=== PATIENT | female | born 1990 | race Caucasian/White ===

== ENCOUNTER 2017-10-10 15:27 | Outpatient (CLI) | payer OTHER ==
[~2017-10-10] VITALS: Ht 154.9 cm; Wt 79.5 kg
[~2017-10-10 15:27] MED LIST: MOTRIN 600600 MG/TAB PO; PRENATAL VITAMI1 TAB PO; PRENATAL1 TA7 PO
[2017-10-10 15:41] VITALS: BP 115/68; PULSE 102; TEMP 97.8
[2017-10-10 16:30] VITALS: BP 115/68; PULSE 102; TEMP 97.8
== END 2017-10-10 17:00 | disposition home or self-care (01) ==
LOC: LDRO 15:27 → LDR 15:30 → LDRO 17:00
DX: O62.9 Abnormality of forces of labor, unspecified (principal); Z3A.37 37 weeks gestation of pregnancy
CPT/HCPCS: OP

== ENCOUNTER 2017-10-25 07:58 | Inpatient (IN) | payer OTHER ==
[~2017-10-25] VITALS: Ht 152.4 cm; Wt 78.2 kg
[2017-10-25] VITALS (28 sets, daily range): BP systolic 102–132; BP diastolic 50–78; PULSE 73–110; TEMP 97.4–98.2
[2017-10-25 09:18] LABS: BASO % 0.2 % (0.0-2.0); EOS % 0.3 % (0-4.0); GRAN # 8.9 (1.4-6.5); LYMPH # 2.2 (1.2-3.4); LYMPH % 18.2 % (20.0-51.0); MEAN CELL VOLUME 85 fl (80.0-100.0); MEAN CORPUSCULAR HGB CONC 32 g/dl (33.0-37.0); MEAN PLATELET VOLUME 9.8 fl (7.4-10.4); MONO # 0.9 (0.1-0.6); MONO % 7.2 % (1.7-9.3); PLATELET COUNT 229 K/mm3 (130-400); RED BLOOD COUNT 4.05 M/mm3 (4.10-5.30); REDCELL DISTRIBUTION WIDTH-CV 13.9 % (11.5-14.5)
[2017-10-25 09:24] LABS: HEMATOCRIT 34.5 % (37.0-47.0); HEMOGLOBIN 10.9 g/dl (12.5-16.0); MEAN CORPUSCULAR HEMOGLOBIN 27 pg (27.0-31.0)
[2017-10-26 03:00] VITALS: BP 113/46; PULSE 71; TEMP 97.8
[2017-10-26 07:30] VITALS: BP 101/59; PULSE 78; TEMP 97.8
[2017-10-26 10:08] LABS: BASO # 0.1 (0.0-0.2); BASO % 0.3 % (0.0-2.0); EOS % 0.2 % (0-4.0); GRAN # 12.1 (1.4-6.5); GRAN % 79.8 % (42.2-75.2); LYMPH % 13.1 % (20.0-51.0); MEAN CELL VOLUME 86 fl (80.0-100.0); MEAN CORPUSCULAR HGB CONC 31 g/dl (33.0-37.0); MEAN PLATELET VOLUME 9.6 fl (7.4-10.4); MONO # 0.9 (0.1-0.6); MONO % 5.9 % (1.7-9.3); PLATELET COUNT 222 K/mm3 (130-400); RED BLOOD COUNT 3.66 M/mm3 (4.10-5.30)
[2017-10-26 10:09] LABS: HEMATOCRIT 31.3 % (37.0-47.0); HEMOGLOBIN 9.8 g/dl (12.5-16.0); MEAN CORPUSCULAR HEMOGLOBIN 27 pg (27.0-31.0)
[2017-10-26 13:30] VITALS: BP 103/47; PULSE 96; TEMP 96.7
[2017-10-26 16:29] VITALS: BP 100/52; PULSE 82; TEMP 98.1
[2017-10-26 20:05] VITALS: BP 108/64; PULSE 85; TEMP 97.7
[2017-10-27 07:15] VITALS: BP 112/67; PULSE 78; TEMP 97.9
[2017-10-27] MEDS ORDERED: IBU600 MG PO (07:51)
== END 2017-10-27 10:40 | disposition home or self-care (01) | DRG 774 ==
LOC: LDRO 07:58 → LDR 08:05 → OB 08:05
PROVIDERS: Obstetrics & Gynecology
PROC: 10E0XZZ Delivery of Products of Conception, External Approach (ICD-10-PCS; principal; 2017-10-25)
DX: O99.824 Streptococcus B carrier state complicating childbirth (principal); O72.1 Other immediate postpartum hemorrhage; Z3A.39 39 weeks gestation of pregnancy; Z37.0 Single live birth
CPT/HCPCS: J2590; J2795; J7120

== ENCOUNTER 2019-12-30 11:25 | Inpatient (IN) | payer BC ==
[~2019-12-30] VITALS: Ht 152.4 cm; Wt 83.3 kg
[2019-12-30] VITALS (27 sets, daily range): BP systolic 91–126; BP diastolic 52–88; PULSE 63–107; TEMP 97.9–98.2
[~2019-12-30 11:25] MED LIST changes: +IBU600 MG PO
[2019-12-30 13:39] LABS: BASO % 0.3 % (0.0-2.0); EOS # 0.1 (0.0-0.7); EOS % 0.5 % (0-4.0); GRAN # 8.8 (1.4-6.5); GRAN % 73.5 % (42.2-75.2); HEMOGLOBIN 11.3 g/dl (12.5-16.0); LYMPH # 2.1 (1.2-3.4); LYMPH % 17.9 % (20.0-51.0); MEAN CELL VOLUME 84 fl (80.0-100.0); MEAN CORPUSCULAR HEMOGLOBIN 27 pg (27.0-31.0); MEAN CORPUSCULAR HGB CONC 32 g/dl (33.0-37.0); MEAN PLATELET VOLUME 10.9 fl (7.4-10.4); MONO # 0.8 (0.1-0.6); PLATELET COUNT 239 K/mm3 (130-400); RED BLOOD COUNT 4.23 M/mm3 (4.10-5.30); REDCELL DISTRIBUTION WIDTH-CV 13.9 % (11.5-14.5)
[2019-12-30] MEDS ORDERED: TUMS EXTRA STR750 MG PO (13:40)
[2019-12-30] MEDS ORDERED: TYLENOL 500MG500 MG PO (13:41)
[2019-12-30 13:44] LABS: HEMATOCRIT 35.7 % (37.0-47.0)
--- NOTE | 2019-12-30 13:47 | NUR ---
PT HERE FOR INDUCTION OF LABOR. FHT'S FOUND IN THE 130'S WITH MODERATE VARIABILITY AND ACCELS. CONSENTS SIGNED. PLAN OF CARE REVIEWED. IV STARTED IN RIGHT WRIST WITH LR INFUSING WITHOUT DIFFICULTY. IV OF PEN G 5 MILLION UNITS STARTED PER GBS PROTOCOL AT 1325
--- NOTE | 2019-12-30 14:15 | NUR ---
DR SALAMANCA IN AT 1408, SVE /-2, AROM AT 1410 WITH CLEAR FLUID.
--- NOTE | 2019-12-30 15:45 | NUR ---
PT WANTING AN EPIDURAL. SVE . CALLED EVIN VILLEGAS, TO COME FOR EPIDURAL PLACEMENT AT 1539. SPOKE TO DR SALAMANCA AT 1540 WITH SVE UPDATE. LR BOLUS INFUSING.
--- NOTE | 2019-12-30 16:15 | NUR ---
Gregorio BOWMAN CRNA, IN AT 1610 FOR EPIDURAL PLACEMENT. PT SITTING UP FOR EPIDURAL. TEST DOSE AT 1614 WITH NO ABNORMAL SYMPTOMS REPORTED.
--- NOTE | 2019-12-30 16:32 | NUR ---
PT RESTING COMFORTABLY AFTER EPIDURAL PLACEMENT.
--- NOTE | 2019-12-30 17:30 | NUR ---
PT FEELING PRESSURE. SVE -/0. DR SALAMANCA CALLED WITH UPDATE AND IS ON HIS WAY. PEN G 2,500,000 UNITS HUNG AT 1725.
--- NOTE | 2019-12-30 17:46 | NUR ---
PT PREPPED AND POSITIONED FOR PUSHING. DR SALAMANCA HERE AT 1740. OF FEMALE AT 1746 OVER INTACT PERINEUM. AT BEDSIDE.
--- NOTE | 2019-12-30 20:30 | NUR ---
FUNDUS FIRM BEFORE MASSAGE. WAS ABLE TO STAND FOR BABY BATH WITHOUT DIFFICULTY THEN FELT VAG LEAKAGE AT END OF BATH WITH A 30CC CLOT
--- NOTE | 2019-12-30 21:00 | NUR ---
2100 PAD HEAVILY SATURATED IN 30 MIN. VOIDS 300CC. FIRMER NOW. VSS 2119 HEMABATE 0.2 MCG IM 15 MIN LATER INTENSE CRAMPING AND NAUSEA- CRYING AND GRIPPING SIDE RAILS UNABLE TO MOVE DUE TO PAIN. DR SALAMANCA NOTIFIED 2236 MS 1 MG IV PT IS WORRIED SHE WILL BE SENTSITIVE TO MS SO HALF DOSE GIVEN 2250 UP TO VOID LESS PAIN NOW 3/4 PAD SATURATED AND CLOT IN STOOL 2305 1 MG MS IV GIVEN TOLERATED FIRST DOSE WELL 0 IMODIUM - MORE COMFORTABLE. NO NAUSEA. FUNDUS FIRM LOCHIA SMALL NO CLOTS . BABY IN NURERY UNTIL NEXT FEEDING. ATTENTIVE. ENCOURAGED TO REST
[2019-12-31 04:14] VITALS: BP 108/45; PULSE 56; TEMP 97.8
--- NOTE | 2019-12-31 04:15 | NUR ---
FUNDUS FIRM SCANT LOCHIA, NO NAUSEA, PAIN MUCH IMPROVED.
[2019-12-31 07:05] VITALS: BP 101/52; PULSE 69; TEMP 98
[2019-12-31 11:13] VITALS: BP 100/54; PULSE 71; TEMP 98.4
[2019-12-31 16:35] VITALS: BP 105/56; PULSE 62; TEMP 97.9
[2019-12-31 20:50] VITALS: BP 102/54; PULSE 60; TEMP 97.9
--- NOTE | 2020-01-01 06:41 | NUR ---
RN to patient room. sleeping on father's chest. Mother and father sleeping. RN woke father and reminded infant needs to be in crib if both parents sleeping. Father verbalized understanding. RN swaddled in crib.
--- NOTE | 2020-01-01 06:45 | NUR ---
REPORT RECEIVED FROM OFF GOING RN, CARMEN Calderón PATIENT ASLEEP, NO BEDSIDE REPORT.
[2020-01-01 08:15] VITALS: BP 112/61; PULSE 77; TEMP 98.4
[2020-01-01] MEDS ORDERED: IBU600 MG PO (08:46)
== END 2020-01-01 12:40 | disposition home or self-care (01) | DRG 807 ==
LOC: OB 11:25 → LDR 13:05 → OB 13:05
PROVIDERS: ADMIT Obstetrics & Gynecology
PROC: 10E0XZZ Delivery of Products of Conception, External Approach (ICD-10-PCS; principal; 2019-12-30)
PROC: 10907ZC Drainage of Amniotic Fluid, Therapeutic from Products of Conception, Via Natural or Artificial Opening (ICD-10-PCS; 2019-12-30)
DX: O99.824 Streptococcus B carrier state complicating childbirth (principal); Z37.0 Single live birth; Z3A.39 39 weeks gestation of pregnancy
CPT/HCPCS: J2270; J2540; J2590; J2795; J7120

== ENCOUNTER 2022-03-27 03:11 | Inpatient (IN) | payer BC ==
[~2022-03-27] VITALS: Ht 152.4 cm; Wt 82.7 kg
[2022-03-27] VITALS (24 sets, daily range): BP systolic 101–121; BP diastolic 50–69; PULSE 48–84; TEMP 97.4–98.3
[~2022-03-27 03:11] MED LIST changes: +TUMS EXTRA STR750 MG PO; +TYLENOL 500MG500 MG PO
--- NOTE | 2022-03-27 03:20 | NUR ---
0320- PT PRESENTS TO LDR COMPLAINING OF LEAKING FLUID, AMBULATORY TO ROOM LR3, CHANGED INTO GOWN. 0327- EFM X2 APPLIED. PT REPORTS LEAKING FLUID AT 0200, CLEAR. DENIES VAGINAL BLEEDING. STATES SHE IS FEELING BABY MOVE. IS NOT HAVING REGULAR PAINFUL CONTRACTIONS BUT DOES NOTICE SOME CONTRACTIONS. PLAN OF CARE FOR LABOR CHECK DISCUSSED AND QUESTIONS ANSWERED. 0340- AMNIOTRACE POSITIVE, GROSS POOLING OF CLEAR FLUID NOTED. SVE BY THIS NURSE /. UPDATED PT AND DISCUSSED PLAN OF CARE. 0344- DR MORENO CALLED CHARTED. ORDERS FOR ADMISSION, PEN G, EPIDURAL, AND AUGMENTATION WITH PITOCIN AT 0700 IF NEEDED. 0355- PT UPDATED ON PLAN OF CARE AND QUESTIONS ANSWERED. NURSING ADMISSION HISTORY AND ASSESSMENT COMPLETED. 0420- IV START TO RIGHT WRIST WITH 20G CHARTED. BLOOD DRAWN FOR LAB. 0438- PT UP TO BATHROOM, ABLE TO VOID. 0445- PEN G INFUSING. 0500- ADMISSION CONSENTS SIGNED. 0525- PT UP TO BATHROOM AND VOIDS WITHOUT DIFFICULTY. SHE CONTINUES TO LEAK CLEAR FLUID. REPORTS HER CONTRACTIONS HAVE BECOME A LITTLE STRONGER BUT NO CONSISTENT YET. 0528- PT UP ON BIRTHING BALL, WISHES TO BE OFF MONITOR. HEART TONES VERIFIED AND THEN PT OFF MONITOR.
[2022-03-27 05:00] LABS: BASO # 0.1 K/mm3 (0.0-0.2); BASO % 0.4 % (0.0-2.0); EOS # 0.1 K/mm3 (0.0-0.7); EOS % 0.7 % (0.0-4.0); GRAN # 7.8 K/mm3 (1.4-6.5); GRAN % 69.3 % (42.2-75.2); HEMOGLOBIN 10.8 g/dl (12.5-16.0); LYMPH # 2.4 K/mm3 (1.2-3.4); LYMPH % 21.6 % (20.0-51.0); MEAN CELL VOLUME 87 fl (80.0-100.0); MEAN CORPUSCULAR HEMOGLOBIN 28 pg (27-31); MEAN CORPUSCULAR HGB CONC 32 g/dl (33.0-37.0); MEAN PLATELET VOLUME 10.1 fl (7.4-10.4); MONO # 0.8 K/mm3 (0.1-0.6); MONO % 7.2 % (1.7-9.3); PLATELET COUNT 223 K/mm3 (130-400); RED BLOOD COUNT 3.88 M/mm3 (4.10-5.30); REDCELL DISTRIBUTION WIDTH-CV 14.4 % (11.5-14.5)
[2022-03-27 05:06] LABS: HEMATOCRIT 33.6 % (37.0-47.0)
--- NOTE | 2022-03-27 06:25 | NUR ---
0625- Recieved report from Alix and proceeded to the bedside. FHR 140 with accelerations noted, no decelerations. José every 4 minutes. Denies any needs or discomfort at this time. 0700- SVE by Susan Carreno RN. /2. Educated patient on intermittent monitoring and plan of care. Noticed record button off, turned on at this time. Patient off monitoring at this time.
--- NOTE | 2022-03-27 07:45 | NUR ---
0745- in patient room. visits with patient, no new orders noted
--- NOTE | 2022-03-27 10:20 | NUR ---
1020- ANESTHESIA NOTIFIED PATIENT REQUESTING EPIDURAL PLACMENT.
--- NOTE | 2022-03-27 10:50 | NUR ---
1050- ANESTHESIA, JOVANI HERE. VISITS WITH PATIENT. 1055- LOCAL ANESTHETIC. 1058- CATHETER IN PLACE. 1059- TEST DOSE GIVEN.
[2022-03-28 02:45] VITALS: BP 108/41; PULSE 58; TEMP 98.2
[2022-03-28 08:00] VITALS: BP 105/58; PULSE 59; TEMP 98.1
[2022-03-28] MEDS ORDERED: MOTRIN 800800 MG/TAB PO (10:09)
[2022-03-28 13:25] VITALS: BP 91/52; PULSE 67; TEMP 97.7
== END 2022-03-28 15:15 | disposition home or self-care (01) | DRG 807 ==
LOC: LDRO 03:11 → LDR 03:56 → OB 15:15
PROVIDERS: ADMIT Obstetrics & Gynecology
PROC: 10E0XZZ Delivery of Products of Conception, External Approach (ICD-10-PCS; principal; 2022-03-27)
DX: O99.824 Streptococcus B carrier state complicating childbirth (principal); Z37.0 Single live birth; Z3A.39 39 weeks gestation of pregnancy; O69.81X0 Labor and delivery complicated by cord around neck, without compression, not applicable or unspecified; O99.02 Anemia complicating childbirth; D64.9 Anemia, unspecified; O44.43 Low lying placenta NOS or without hemorrhage, third trimester; Z88.8 Allergy status to other drugs, medicaments and biological substances; O76 Abnormality in fetal heart rate and rhythm complicating labor and delivery; Z23 Encounter for immunization
CPT/HCPCS: J2540; J2590; J2795; J7120